=== PATIENT | male | born 1950 | race Caucasian/White ===

== ENCOUNTER 2016-06-01 19:29 | Inpatient (IN) | payer MEDICARE ==
[~2016-06-01] VITALS: Ht 172.7 cm; Wt 87.8 kg
[~2016-06-01 19:29] MED LIST: ASPI-515 PO; ASPI81TA14 PO; CALC-141 PO; CALC200T3 PO; CHLO25TA PO; CHOL5000 PO; DIGO250T PO; ENOX80SY5 SQ; FERR324T5 PO; FURO-92 PO; INFL100V IV; INSU100C5 SQ-INSULIN; INSU100V8 SQ; LISI-170 PO; MERC50TA17 PO; METO25TA35 PO; MULT-658 PO; OMEP20CA9 PO; SPIR25TA PO; SPIR25TA3 PO; TAMS-11 PO; TAMS0.4C2 PO; VERA120T74 PO; WARF4TAB PO; WARF4TAB7 PO; WARF5TAB PO; WARF7.5T6 PO-COUM
[2016-06-01] MEDS ORDERED: SODIUM CHLORIDE FLUSH 10ML SYR IVF ONE ×2 (20:00→20:30)
[2016-06-01 20:11] LABS: HEMOGLOBIN 12.9 g/dL (13.7-18.0)
[2016-06-01] MEDS ORDERED: SODIUM CHLORIDE 0.9% 1,000 ML IV ONE (20:16)
[2016-06-01 20:22] LABS: ASPARTATE AMINO TRANSFERASE 32 U/L (15-37); BLOOD UREA NITROGEN 21 mg/dL (7-18)
[2016-06-01 20:28] LABS: IS PT STATUS REG ER OR PRE ER? YES
[2016-06-01] MEDS ORDERED: ACETAMINOPHEN 500 MG TABLET ONE (20:29)
[2016-06-01] MEDS ORDERED: AZITHROMYCIN 500 MG in SODIUM CHLORIDE 0.9% 250 ML IV ONE (20:30)
[2016-06-01] MEDS ORDERED: SODIUM CHLORIDE 0.9% 1,000ML IVBOLUS ONE (20:30)
[2016-06-01] MEDS ORDERED: ACETAMINOPHEN 500 MG TABLET PO ONE (20:30)
[2016-06-01] MEDS ORDERED: CEFTRIAXONE PMX 1GM/50ML 50 ML IVPB ONE (20:30)
[2016-06-01] MEDS ORDERED: CEFTRIAXONE PMX 1GM/50ML 50 ML ONE (20:57)
[2016-06-01] MEDS ORDERED: LOSA25TA2 PO (21:18)
[2016-06-01] MEDS ORDERED: INSU100V8 SQ (21:18)
[2016-06-01] MEDS ORDERED: ATOR40TA PO (21:18)
[2016-06-01] MEDS ORDERED: ASPI-496 PO (21:18)
[2016-06-01] MEDS ORDERED: BRIM5DRO2 EACHEYE (21:18)
[2016-06-01] MEDS ORDERED: APIX5TAB PO (21:18)
[2016-06-01] MEDS ORDERED: CARV6.2512 PO (21:18)
[2016-06-01] MEDS ORDERED: CYAN10008 PO (21:18)
[2016-06-01 23:39] VITALS: BP 124/71
[2016-06-02] MEDS: CEFTRIAXONE PMX 1GM/50ML 50 ML IV SCH ×2 (00:30→21:40)
[2016-06-02] MEDS: AZITHROMYCIN 500 MG in SODIUM CHLORIDE 0.9% 250 ML IV SCH ×2 (00:30→20:11)
[2016-06-02] MEDS: ATORVASTATIN 40 MG TABLET PO SCH ×2 (00:30→20:16)
[2016-06-02] MEDS ORDERED: TEMAZEPAM 15 MG CAPSULE PO PRN (01:00)
[2016-06-02] MEDS ORDERED: DOCUSATE 100 MG CAPSULE PO PRN (01:00)
[2016-06-02 03:11] VITALS: BP 129/77
[2016-06-02 07:21] VITALS: BP 133/84
[2016-06-02] MEDS: CHOLECALCIFEROL 1,000 UNIT TABLET PO SCH (07:53)
[2016-06-02] MEDS: TAMSULOSIN 0.4 MG CAP.ER.24H PO SCH (07:53)
[2016-06-02] MEDS: APIXABAN 5 MG TABLET PO SCH ×2 (07:53→20:16)
[2016-06-02] MEDS: MULTIVITAMIN 1 TABLET PO SCH (07:53)
[2016-06-02] MEDS: ASPIRIN 81 MG TABLET EC PO SCH (07:53)
[2016-06-02] MEDS: LOSARTAN 25MG TABLET PO SCH (07:54)
[2016-06-02] MEDS: CARVEDILOL 6.25 MG TABLET PO SCH ×2 (07:54→20:16)
[2016-06-02] MEDS: FUROSEMIDE 40 MG TABLET PO SCH (07:56)
[2016-06-02] MEDS: TEMPLATE NON-FORMULARY MED. (Brimonidine Tartrate/Timolol (Combigan Eye Drops) 1 DROP) EACHEYE SCH ×2 (08:41→20:31)
[2016-06-02] MEDS: INSULIN DETEMIR 100 UNITS/ML, PEN SQ-INSULIN SCH (09:48)
[2016-06-02] MEDS: GUAIFENESIN 200 MG TABLET PO SCH ×3 (10:45→20:16)
[2016-06-02] MEDS: INSULIN ASPART 100 UNITS/ML, PEN SQ-INSULIN SCH ×3 (11:38→20:15)
[2016-06-02 13:29] VITALS: BP 107/67
[2016-06-02 19:55] VITALS: BP 116/66
[2016-06-03 02:33] VITALS: BP 122/76
[2016-06-03 06:07] LABS: HEMOGLOBIN 11.2 g/dL (13.7-18.0)
[2016-06-03 06:17] LABS: BLOOD UREA NITROGEN 16 mg/dL (7-18)
[2016-06-03 06:21] LABS: ASPARTATE AMINO TRANSFERASE 28 U/L (15-37)
[2016-06-03] MEDS: GUAIFENESIN 200 MG TABLET PO SCH ×4 (06:35→21:04)
[2016-06-03 07:37] VITALS: BP 131/85
[2016-06-03] MEDS: INSULIN ASPART 100 UNITS/ML, PEN SQ-INSULIN SCH ×4 (07:50→21:05)
[2016-06-03] MEDS ORDERED: ACETAMINOPHEN 325 MG TABLET PO PRN (08:30)
[2016-06-03] MEDS: TEMPLATE NON-FORMULARY MED. (Brimonidine Tartrate/Timolol (Combigan Eye Drops) 1 DROP) EACHEYE SCH ×2 (08:41→19:56)
[2016-06-03] MEDS: TAMSULOSIN 0.4 MG CAP.ER.24H PO SCH (08:42)
[2016-06-03] MEDS: LOSARTAN 25MG TABLET PO SCH (08:42)
[2016-06-03] MEDS: CARVEDILOL 6.25 MG TABLET PO SCH ×2 (08:42→21:04)
[2016-06-03] MEDS: APIXABAN 5 MG TABLET PO SCH ×2 (08:42→21:04)
[2016-06-03] MEDS: CHOLECALCIFEROL 1,000 UNIT TABLET PO SCH (08:43)
[2016-06-03] MEDS: ASPIRIN 81 MG TABLET EC PO SCH (08:43)
[2016-06-03] MEDS: MULTIVITAMIN 1 TABLET PO SCH (08:43)
[2016-06-03] MEDS: FUROSEMIDE 40 MG TABLET PO SCH (08:44)
[2016-06-03] MEDS: INSULIN DETEMIR 100 UNITS/ML, PEN SQ-INSULIN SCH (08:46)
[2016-06-03] MEDS: ALBUTEROL/IPRATROPIUM 2.5MG/0.5MG, 3 ML NPPB PRN (12:33)
[2016-06-03 14:22] VITALS: BP 113/72
[2016-06-03 18:34] VITALS: BP 136/72
[2016-06-03] MEDS: AZITHROMYCIN 500 MG in SODIUM CHLORIDE 0.9% 250 ML IV SCH (19:55)
[2016-06-03] MEDS: CEFTRIAXONE PMX 1GM/50ML 50 ML IV SCH (21:04)
[2016-06-03] MEDS: ATORVASTATIN 40 MG TABLET PO SCH (21:04)
[2016-06-04 01:49] VITALS: BP 108/71
[2016-06-04] MEDS: GUAIFENESIN 200 MG TABLET PO SCH ×4 (06:16→20:10)
[2016-06-04] MEDS: INSULIN ASPART 100 UNITS/ML, PEN SQ-INSULIN SCH ×4 (07:00→20:10)
[2016-06-04] MEDS: FUROSEMIDE 40 MG TABLET PO SCH (08:13)
[2016-06-04] MEDS: CHOLECALCIFEROL 1,000 UNIT TABLET PO SCH (08:13)
[2016-06-04] MEDS: TAMSULOSIN 0.4 MG CAP.ER.24H PO SCH (08:13)
[2016-06-04] MEDS: MULTIVITAMIN 1 TABLET PO SCH (08:13)
[2016-06-04] MEDS: TEMPLATE NON-FORMULARY MED. (Brimonidine Tartrate/Timolol (Combigan Eye Drops) 1 DROP) EACHEYE SCH ×2 (08:13→20:11)
[2016-06-04] MEDS: APIXABAN 5 MG TABLET PO SCH ×2 (08:13→20:10)
[2016-06-04] MEDS: ASPIRIN 81 MG TABLET EC PO SCH (08:13)
[2016-06-04] MEDS: CARVEDILOL 6.25 MG TABLET PO SCH ×2 (08:13→20:10)
[2016-06-04] MEDS: LOSARTAN 25MG TABLET PO SCH (08:14)
[2016-06-04] MEDS: INSULIN DETEMIR 100 UNITS/ML, PEN SQ-INSULIN SCH (08:15)
[2016-06-04 08:36] VITALS: BP 120/79
[2016-06-04] MEDS: ALBUTEROL/IPRATROPIUM 2.5MG/0.5MG, 3 ML NPPB PRN ×3 (10:05→21:18)
[2016-06-04 13:47] VITALS: BP 117/75
[2016-06-04 19:08] VITALS: BP 127/83
[2016-06-04] MEDS: AZITHROMYCIN 500 MG in SODIUM CHLORIDE 0.9% 250 ML IV SCH (20:10)
[2016-06-04] MEDS: ATORVASTATIN 40 MG TABLET PO SCH (20:10)
[2016-06-04] MEDS: CEFTRIAXONE PMX 1GM/50ML 50 ML IV SCH (21:17)
[2016-06-05 01:30] VITALS: BP 124/71
[2016-06-05] MEDS: GUAIFENESIN 200 MG TABLET PO SCH (05:57)
[2016-06-05] MEDS: INSULIN ASPART 100 UNITS/ML, PEN SQ-INSULIN SCH (07:00)
[2016-06-05 07:16] VITALS: BP 133/81
[2016-06-05] MEDS: TEMPLATE NON-FORMULARY MED. (Brimonidine Tartrate/Timolol (Combigan Eye Drops) 1 DROP) EACHEYE SCH (08:55)
[2016-06-05] MEDS: APIXABAN 5 MG TABLET PO SCH (08:56)
[2016-06-05] MEDS: CARVEDILOL 6.25 MG TABLET PO SCH (08:56)
[2016-06-05] MEDS: CHOLECALCIFEROL 1,000 UNIT TABLET PO SCH (08:56)
[2016-06-05] MEDS: TAMSULOSIN 0.4 MG CAP.ER.24H PO SCH (08:56)
[2016-06-05] MEDS: ASPIRIN 81 MG TABLET EC PO SCH (08:56)
[2016-06-05] MEDS: MULTIVITAMIN 1 TABLET PO SCH (08:56)
[2016-06-05] MEDS: FUROSEMIDE 40 MG TABLET PO SCH (08:56)
[2016-06-05] MEDS: LOSARTAN 25MG TABLET PO SCH (08:58)
[2016-06-05] MEDS: INSULIN DETEMIR 100 UNITS/ML, PEN SQ-INSULIN SCH (08:58)
[2016-06-05] MEDS: ALBUTEROL/IPRATROPIUM 2.5MG/0.5MG, 3 ML NPPB PRN (09:16)
[2016-06-05] MEDS ORDERED: TEMA15CA6 PO (10:50)
[2016-06-05] MEDS ORDERED: AZIT500T4 PO (10:50)
[2016-06-05] MEDS ORDERED: LACT1CAP24 PO (10:50)
[2016-06-05] MEDS ORDERED: CEFD300C2 PO (11:08)
== END 2016-06-05 12:16 | disposition home or self-care (01) | DRG 871 ==
LOC: ED 21:00 → EDIP 21:24 → 4EST 22:43
PROVIDERS: ADMIT Internal Medicine; ATTEND Internal Medicine
DX: A41.9 Sepsis, unspecified organism (principal); J15.9 Unspecified bacterial pneumonia; J96.01 Acute respiratory failure with hypoxia; E43 Unspecified severe protein-calorie malnutrition; K50.90 Crohn's disease, unspecified, without complications; D68.69 Other thrombophilia; I48.2 Chronic atrial fibrillation; E11.9 Type 2 diabetes mellitus without complications; I50.9 Heart failure, unspecified; I11.0 Hypertensive heart disease with heart failure; Z79.01 Long term (current) use of anticoagulants; Z86.711 Personal history of pulmonary embolism; Z86.73 Personal history of transient ischemic attack (TIA), and cerebral infarction without residual deficits; Z87.891 Personal history of nicotine dependence; Z79.4 Long term (current) use of insulin; Z82.3 Family history of stroke; Z83.3 Family history of diabetes mellitus; Z68.29 Body mass index [BMI] 29.0-29.9, adult; Z88.8 Allergy status to other drugs, medicaments and biological substances
CPT/HCPCS: 36415; 71010; 80053; 81003; 82962; 83036; 83605; 83735; 84100; 84145; 84484; 85025; 85610; 87040; 87070; 87205; 93005; 94640; 96365; 96366; 96368; J0456; J0696; J1815; J7620; J7030; J7050

== ENCOUNTER → 2016-06-15 | Outpatient (CLI) | payer MEDICARE ==
[~2016-06-15] MED LIST changes: +APIX5TAB PO; +ASPI-496 PO; +ATOR40TA PO; +AZIT500T4 PO; +BRIM5DRO2 EACHEYE; +CARV6.2512 PO; +CEFD300C2 PO; +CYAN10008 PO; +LACT1CAP24 PO; +LOSA25TA2 PO; +TEMA15CA6 PO
[2016-06-15 11:58] LABS: HEMOGLOBIN 12.1 g/dL (13.7-18.0)
[2016-06-15 12:09] LABS: ASPARTATE AMINO TRANSFERASE 29 U/L (15-37); BLOOD UREA NITROGEN 25 mg/dL (7-18)
== END | disposition home or self-care (01) ==
LOC: STAR 10:55
PROVIDERS: ATTEND Colon & Rectal Surgery
DX: Z01.811 Encounter for preprocedural respiratory examination (principal); E11.9 Type 2 diabetes mellitus without complications; Z90.49 Acquired absence of other specified parts of digestive tract
CPT/HCPCS: 36415; 71020; 80053; 85025

== ENCOUNTER 2016-06-25 06:25 | Inpatient (IN) | payer MEDICARE ==
[~2016-06-25] VITALS: Ht 172.7 cm; Wt 81.0 kg
[2016-06-25] VITALS (10 sets, daily range): BP systolic 102–132; BP diastolic 62–87
[~2016-06-25 06:25] MED LIST changes: -AZIT500T4 PO; +AZIT500T77 PO; -CEFD300C2 PO; +CEFD300C37 PO
[2016-06-25] MEDS ORDERED: WARF5TAB PO (07:42)
[2016-06-25] MEDS ORDERED: LACTATED RINGERS 1,000 ML IV SCH (07:42)
[2016-06-25] MEDS ORDERED: FENTANYL PF 250 MCG/5ML ONE (07:58)
[2016-06-25] MEDS ORDERED: MIDAZOLAM 1 MG/ML, 2ML ONE (07:58)
[2016-06-25] MEDS ORDERED: BUPIVACAINE/PF-EPI 0.25% 1:200K ONE (08:23)
[2016-06-25] MEDS ORDERED: PNEUMOCOCCAL 23 VACCINE IM-VACC ONE (08:30)
[2016-06-25] MEDS ORDERED: PHENYLEPHRINE 10 MG/ML ONE ×2 (08:38)
[2016-06-25] MEDS ORDERED: ROCURONIUM 10 MG/ML ONE ×3 (08:38)
[2016-06-25] MEDS ORDERED: PROPOFOL 10 MG/ML, 20ML ONE (08:38)
[2016-06-25] MEDS ORDERED: SUCCINYLCHOLINE 20 MG/ML, 10ML ONE (08:38)
[2016-06-25] MEDS ORDERED: CEFOTETAN 2 GM ONE (08:38)
[2016-06-25] MEDS ORDERED: VASOPRESSIN 20 UNIT/ML, 1ML ONE (08:38)
[2016-06-25] MEDS ORDERED: HYDROmorphone 1 MG/ML, 1ML IV PRN (09:30)
[2016-06-25] MEDS ORDERED: HYDROcodone/APAP 7.5-325MG/15ML UDC PO PRN (09:30)
[2016-06-25] MEDS ORDERED: ACETAMINOPHEN 325 MG TABLET PO PRN (09:30)
[2016-06-25] MEDS ORDERED: MIDAZOLAM 1 MG/ML, 2ML IV PRN (09:30)
[2016-06-25] MEDS ORDERED: FENTANYL PF 100 MCG/2ML IV PRN (09:30)
[2016-06-25] MEDS ORDERED: MEPERIDINE/PF 25MG/0.5ML IVPush PRN (09:30)
[2016-06-25] MEDS ORDERED: OXYcodone 5 MG/5 ML ORAL.SOL UDC PO PRN (09:30)
[2016-06-25] MEDS ORDERED: ONDANSETRON 2MG/ML, 2ML IVPush PRN (09:30)
[2016-06-25] MEDS ORDERED: INSULIN SINGLE DOSE, ER SQ-INSULIN ONE (10:10)
[2016-06-25] MEDS ORDERED: ALBUMIN HUMAN 25% 0 ML ONE (11:58)
[2016-06-25] MEDS ORDERED: ALBUMIN HUMAN 5% 500 ML ONE (11:59)
[2016-06-25] MEDS ORDERED: THROMBIN 20,000 UNIT VIAL TP ONE (12:12)
[2016-06-25] MEDS ORDERED: HYDROmorphone 1 MG/ML, 1ML ONE (13:05)
[2016-06-25] MEDS ORDERED: PROPOFOL 100 ML IV ONE (13:45)
[2016-06-25] MEDS ORDERED: FENTANYL PF 2,500 MCG in SODIUM CHLORIDE 0.9% 200 ML IV PRN ×2 (14:28→14:30)
[2016-06-25] MEDS ORDERED: ONDANSETRON 2MG/ML, 2ML IV PRN (14:30)
[2016-06-25] MEDS ORDERED: KETOROLAC 30 MG/1 ML IV PRN (14:30)
[2016-06-25] MEDS ORDERED: LIDOCAINE-MPF 1%, 2ML ENDO PRN (14:30)
[2016-06-25] MEDS ORDERED: DIPHENHYDRAMINE 50 MG/ML, 1ML IV PRN (14:30)
[2016-06-25] MEDS ORDERED: DIPHENHYDRAMINE 25 MG CAPSULE PO PRN (14:30)
[2016-06-25] MEDS ORDERED: LACTULOSE 20 GM/30 ML UDC NG PRN (14:30)
[2016-06-25] MEDS ORDERED: FENTANYL PF 100 MCG/2ML IV ONE (14:30)
[2016-06-25] MEDS ORDERED: PHARMACY MAY ADJ FOR RENAL FX MC SCH (14:30)
[2016-06-25] MEDS ORDERED: FENTANYL PF 100 MCG/2ML IVPush PRN (14:30)
[2016-06-25] MEDS ORDERED: SENNOSIDES 8.8 MG/5 ML ORAL SOL NG PRN (14:30)
[2016-06-25] MEDS ORDERED: BISACODYL 10 MG SUPP PR PRN (14:30)
[2016-06-25] MEDS ORDERED: SENNA/DOCUSATE TABLET NG PRN (14:30)
[2016-06-25] MEDS ORDERED: SODIUM CHLORIDE 0.9% 1,000ML IVBOLUS ONE (14:30)
[2016-06-25 15:01] LABS: ABG COLLECTION SITE ARTERIAL LINE
[2016-06-25] MEDS: INSULIN ASPART 100 UNITS/ML, 3ML PEN MEDIUM DOSE SS SQ-INSULIN SCH ×2 (16:00→21:19)
[2016-06-25] MEDS: PROPOFOL 100 ML IV PRN ×2 (16:56→22:01)
[2016-06-25] MEDS: FAMOTIDINE 20 MG/2 ML IV SCH (17:01)
[2016-06-25] MEDS: LACTATED RINGERS 1,000 ML IV SCH (17:25)
[2016-06-25] MEDS: CARVEDILOL 6.25 MG TABLET PO SCH (18:00)
[2016-06-25] MEDS: ALBUTEROL/IPRATROPIUM 2.5MG/0.5MG, 3 ML INLINE SCH ×2 (18:30→22:30)
[2016-06-25] MEDS ORDERED: LACTATED RINGERS 1,000 ML IVBOLUS ONE (20:00)
[2016-06-25] MEDS ORDERED: ALBUMIN HUMAN 25% 100 ML IV ONE (20:00)
[2016-06-25] MEDS: CEFOTETAN PMX 2GM/50ML 50 ML IVPB SCH (20:24)
[2016-06-25] MEDS: ATORVASTATIN 40 MG TABLET PO SCH (21:00)
[2016-06-25] MEDS: INSULIN DETEMIR 100 UNITS/ML, PEN SQ-INSULIN SCH (21:00)
[2016-06-26] MEDS: LACTATED RINGERS 1,000 ML IV SCH ×4 (02:07→18:55)
[2016-06-26] MEDS: ALBUTEROL/IPRATROPIUM 2.5MG/0.5MG, 3 ML INLINE SCH ×6 (02:28→22:30)
[2016-06-26] MEDS: FAMOTIDINE 20 MG/2 ML IV SCH ×2 (02:56→18:53)
[2016-06-26 03:26] LABS: ABG COLLECTION SITE ARTERIAL LINE
[2016-06-26 03:28] LABS: ASPARTATE AMINO TRANSFERASE 23 U/L (15-37); BLOOD UREA NITROGEN 24 mg/dL (7-18)
[2016-06-26 04:22] VITALS: BP 108/72
[2016-06-26] MEDS: INSULIN ASPART 100 UNITS/ML, 3ML PEN MEDIUM DOSE SS SQ-INSULIN SCH ×4 (05:21→21:00)
[2016-06-26] MEDS: CARVEDILOL 6.25 MG TABLET PO SCH ×2 (05:21→18:54)
[2016-06-26] MEDS: PROPOFOL 100 ML IV PRN ×4 (05:21→22:39)
[2016-06-26] MEDS: CEFOTETAN PMX 2GM/50ML 50 ML IVPB SCH (08:26)
[2016-06-26] MEDS: TAMSULOSIN 0.4 MG CAP.ER.24H PO SCH (08:26)
[2016-06-26 08:43] LABS: BLOOD UREA NITROGEN 28 mg/dL (7-18)
[2016-06-26] MEDS ORDERED: LACTATED RINGERS 1,000 ML IVBOLUS ONE (09:00)
[2016-06-26] MEDS ORDERED: MAGNESIUM SULFATE PMX 2GM/50ML 50 ML IV ONE (09:00)
[2016-06-26] MEDS ORDERED: ENOXAPARIN 40 MG/0.4 ML SQ SCH (09:00)
[2016-06-26] MEDS ORDERED: [UNRECOGNIZED DRUG - OTHER] MC SCH ×2 (09:00→10:00)
[2016-06-26 09:12] LABS: DIFF TOTAL CELLS COUNTED 100 CELL DIFF
[2016-06-26 09:18] LABS: POLYCHROMASIA 1+; VERIFY COUNTS? YES
[2016-06-26 09:19] LABS: LARGE PLATELETS 1+
[2016-06-26] MEDS ORDERED: ALBUMIN HUMAN 25% 100 ML IV ONE (10:00)
[2016-06-26] MEDS ORDERED: ALBUMIN HUMAN 5% 500 ML IV ONE (10:30)
[2016-06-26] MEDS ORDERED: ALBUMIN HUMAN 5% 500 ML IV SCH (11:00)
[2016-06-26] MEDS ORDERED: KETAMINE 10 MG/ML, 20ML ONE (12:57)
[2016-06-26] MEDS ORDERED: MIDAZOLAM 1 MG/ML, 2ML ONE (12:57)
[2016-06-26] MEDS ORDERED: FENTANYL PF 250 MCG/5ML ONE (12:57)
[2016-06-26] MEDS ORDERED: ALBUMIN HUMAN 25% 0 ML ONE (13:41)
[2016-06-26] MEDS ORDERED: ALBUMIN HUMAN 5% 500 ML ONE ×2 (13:45→14:13)
[2016-06-26] MEDS ORDERED: ROCURONIUM 10 MG/ML ONE (13:48)
[2016-06-26] MEDS ORDERED: SODIUM BICARBONATE 1 MEQ/ML, 50ML VIAL ONE (13:48)
[2016-06-26] MEDS ORDERED: PROPOFOL 10 MG/ML, 50ML ONE (13:48)
[2016-06-26] MEDS ORDERED: PHENYLEPHRINE 10 MG/ML ONE (13:48)
[2016-06-26] MEDS ORDERED: METOPROLOL 1 MG/ML, 5ML ONE (13:48)
[2016-06-26] MEDS ORDERED: CEFOTETAN 2 GM ONE (13:48)
[2016-06-26] MEDS ORDERED: PROPOFOL 10 MG/ML, 20ML ONE (13:48)
[2016-06-26 14:16] LABS: DIFF TOTAL CELLS COUNTED 100 CELL DIFF
[2016-06-26 14:18] LABS: POLYCHROMASIA 1+; VERIFY COUNTS? YES
[2016-06-26] MEDS ORDERED: INSULIN SINGLE DOSE, ER SQ-INSULIN ONE (15:34)
[2016-06-26] MEDS ORDERED: THROMBIN 5,000 UNIT VIAL TP ONE (16:03)
[2016-06-26] MEDS ORDERED: TPN PER PHARMACY MC SCH (18:30)
[2016-06-26 18:50] VITALS: BP 139/74
[2016-06-26 19:05] VITALS: BP 136/73
[2016-06-26 19:20] VITALS: BP 143/74
[2016-06-26 19:22] LABS: ABG COLLECTION SITE ARTERIAL LINE
[2016-06-26] MEDS: PIPERACILLIN/TAZO/PMX 3.375GM 50 ML IV SCH (19:26)
[2016-06-26 20:11] VITALS: BP 131/78
[2016-06-26 20:27] VITALS: BP 115/60
[2016-06-26] MEDS: ATORVASTATIN 40 MG TABLET PO SCH (21:10)
[2016-06-26] MEDS: INSULIN ASPART 100 UNITS/ML, PEN SQ-INSULIN SCH (21:11)
[2016-06-26] MEDS: INSULIN DETEMIR 100 UNITS/ML, PEN SQ-INSULIN SCH (21:12)
[2016-06-27] MEDS: PIPERACILLIN/TAZO/PMX 3.375GM 50 ML IV SCH ×4 (00:17→18:12)
[2016-06-27] MEDS: LACTATED RINGERS 1,000 ML IV SCH ×3 (01:43→16:21)
[2016-06-27] MEDS: ALBUTEROL/IPRATROPIUM 2.5MG/0.5MG, 3 ML INLINE SCH ×6 (02:30→22:30)
[2016-06-27] MEDS: PROPOFOL 100 ML IV PRN (03:43)
[2016-06-27] MEDS: INSULIN ASPART 100 UNITS/ML, PEN SQ-INSULIN SCH ×4 (03:52→21:04)
[2016-06-27] MEDS: FAMOTIDINE 20 MG/2 ML IV SCH (03:53)
[2016-06-27 04:12] VITALS: BP 113/65
[2016-06-27] MEDS: CARVEDILOL 6.25 MG TABLET PO SCH ×2 (05:40→17:01)
[2016-06-27 06:46] LABS: ASPARTATE AMINO TRANSFERASE 17 U/L (15-37); BLOOD UREA NITROGEN 22 mg/dL (7-18)
[2016-06-27 06:51] LABS: ABG COLLECTION SITE LEFT RADIAL; COLLATERAL CIRCULATION TESTING NORMAL
[2016-06-27] MEDS ORDERED: ALBUMIN HUMAN 25% 100 ML IV ONE (08:30)
[2016-06-27] MEDS: TAMSULOSIN 0.4 MG CAP.ER.24H PO SCH (09:00)
[2016-06-27] MEDS ORDERED: FUROSEMIDE 20 MG/2 ML IV ONE (10:00)
[2016-06-27 10:23] LABS: DIFF TOTAL CELLS COUNTED 100 CELL DIFF
[2016-06-27 10:26] LABS: ANISOCYTOSIS 1+; POLYCHROMASIA 1+; VERIFY COUNTS? YES
[2016-06-27 13:36] LABS: DIFF TOTAL CELLS COUNTED 100 CELL DIFF
[2016-06-27 13:38] LABS: ANISOCYTOSIS 1+; POLYCHROMASIA 1+; VERIFY COUNTS? YES
[2016-06-27] MEDS: HYDROmorphone 1 MG/ML, 1ML IV PRN ×2 (14:16→20:49)
[2016-06-27] MEDS ORDERED: [UNRECOGNIZED DRUG - OTHER] IV SCH (17:00)
[2016-06-27] MEDS ORDERED: DEXTROSE 10% 500 ML IV PRN (17:00)
[2016-06-27] MEDS ORDERED: DEXTROSE 50%, 50ML SYRINGE IVPush PRN (17:00)
[2016-06-27] MEDS ORDERED: DEXTROSE 70% IV SCH (17:00)
[2016-06-27] MEDS ORDERED: STERILE WATER IV SCH (17:00)
[2016-06-27] MEDS ORDERED: AMINO ACID 10% IV SCH (17:00)
[2016-06-27] MEDS: FILTER, DISP 1.2 MICRON FOR TPN/PVN IV PRN (17:03)
[2016-06-27 17:10] LABS: DIFF TOTAL CELLS COUNTED 100 CELL DIFF
[2016-06-27 17:14] LABS: VERIFY COUNTS? YES
[2016-06-27 17:15] LABS: ANISOCYTOSIS 1+; POLYCHROMASIA 1+
[2016-06-27] MEDS: ATORVASTATIN 40 MG TABLET PO SCH (21:03)
[2016-06-27] MEDS: INSULIN DETEMIR 100 UNITS/ML, PEN SQ-INSULIN SCH (21:03)
[2016-06-27 23:14] LABS: DIFF TOTAL CELLS COUNTED 100 CELL DIFF
[2016-06-27 23:17] LABS: ANISOCYTOSIS 1+; POLYCHROMASIA 1+; VERIFY COUNTS? YES
[2016-06-28] MEDS: PIPERACILLIN/TAZO/PMX 3.375GM 50 ML IV SCH ×4 (00:29→17:22)
[2016-06-28] MEDS: LACTATED RINGERS 1,000 ML IV SCH (02:01)
[2016-06-28] MEDS: HYDROmorphone 1 MG/ML, 1ML IV PRN ×4 (02:06→23:40)
[2016-06-28] MEDS: ALBUTEROL/IPRATROPIUM 2.5MG/0.5MG, 3 ML INLINE SCH ×3 (02:30→10:30)
[2016-06-28 04:15] VITALS: BP 143/89
[2016-06-28 04:35] LABS: ABG COLLECTION SITE LEFT RADIAL; COLLATERAL CIRCULATION TESTING NORMAL
[2016-06-28] MEDS: INSULIN ASPART 100 UNITS/ML, PEN SQ-INSULIN SCH ×4 (05:49→20:49)
[2016-06-28] MEDS: CARVEDILOL 6.25 MG TABLET PO SCH ×2 (05:51→16:35)
[2016-06-28 06:52] LABS: BLOOD UREA NITROGEN 16 mg/dL (7-18)
[2016-06-28 07:13] LABS: DIFF TOTAL CELLS COUNTED 100 CELL DIFF
[2016-06-28 07:16] LABS: ANISOCYTOSIS 1+; POLYCHROMASIA 1+; VERIFY COUNTS? YES
[2016-06-28] MEDS: TAMSULOSIN 0.4 MG CAP.ER.24H PO SCH (08:02)
[2016-06-28] MEDS ORDERED: LACTATED RINGERS 1,000 ML IV SCH (08:36)
[2016-06-28] MEDS ORDERED: DEXTROSE 70% IV SCH (17:00)
[2016-06-28] MEDS ORDERED: [UNRECOGNIZED DRUG - OTHER] IV SCH (17:00)
[2016-06-28] MEDS ORDERED: AMINO ACID 10% IV SCH (17:00)
[2016-06-28] MEDS ORDERED: FAT EMULSIONS IV SCH (17:00)
[2016-06-28] MEDS: ATORVASTATIN 40 MG TABLET PO SCH (20:48)
[2016-06-28] MEDS: INSULIN DETEMIR 100 UNITS/ML, PEN SQ-INSULIN SCH (20:48)
[2016-06-29] MEDS: PIPERACILLIN/TAZO/PMX 3.375GM 50 ML IV SCH ×4 (00:33→17:31)
[2016-06-29] MEDS: INSULIN ASPART 100 UNITS/ML, PEN SQ-INSULIN SCH ×4 (03:12→22:55)
[2016-06-29 03:33] LABS: BLOOD UREA NITROGEN 20 mg/dL (7-18)
[2016-06-29 04:17] LABS: ABG COLLECTION SITE RIGHT RADIAL
[2016-06-29 04:18] LABS: COLLATERAL CIRCULATION TESTING NORMAL
[2016-06-29 04:23] VITALS: BP 154/94
[2016-06-29] MEDS: CARVEDILOL 6.25 MG TABLET PO SCH ×2 (06:11→17:28)
[2016-06-29] MEDS: TAMSULOSIN 0.4 MG CAP.ER.24H PO SCH (09:24)
[2016-06-29] MEDS: ALBUTEROL/IPRATROPIUM 2.5MG/0.5MG, 3 ML INLINE SCH (10:02)
[2016-06-29] MEDS ORDERED: DEXTROSE 70% IV SCH (17:00)
[2016-06-29] MEDS ORDERED: [UNRECOGNIZED DRUG - OTHER] IV SCH (17:00)
[2016-06-29] MEDS ORDERED: AMINO ACID 10% IV SCH (17:00)
[2016-06-29] MEDS ORDERED: FAT EMULSIONS IV SCH (17:00)
[2016-06-29] MEDS: ATORVASTATIN 40 MG TABLET PO SCH (20:51)
[2016-06-29] MEDS: INSULIN DETEMIR 100 UNITS/ML, PEN SQ-INSULIN SCH (20:52)
[2016-06-30] MEDS: PIPERACILLIN/TAZO/PMX 3.375GM 50 ML IV SCH ×4 (00:55→18:40)
[2016-06-30 04:00] VITALS: BP 166/100
[2016-06-30 04:48] LABS: BLOOD UREA NITROGEN 22 mg/dL (7-18)
[2016-06-30] MEDS: CARVEDILOL 6.25 MG TABLET PO SCH ×2 (05:58→18:14)
[2016-06-30] MEDS: INSULIN ASPART 100 UNITS/ML, PEN SQ-INSULIN SCH ×4 (05:59→23:37)
[2016-06-30] MEDS ORDERED: LABETALOL 5MG/ML, 20ML IV PRN (08:30)
[2016-06-30] MEDS: TAMSULOSIN 0.4 MG CAP.ER.24H PO SCH (09:17)
[2016-06-30 13:08] VITALS: BP 166/93
[2016-06-30] MEDS ORDERED: AMINO ACID 10% IV SCH ×2 (17:00→18:32)
[2016-06-30] MEDS ORDERED: DEXTROSE 70% IV SCH ×2 (17:00→18:32)
[2016-06-30] MEDS ORDERED: FAT EMULSIONS IV SCH ×2 (17:00→18:32)
[2016-06-30] MEDS ORDERED: [UNRECOGNIZED DRUG - OTHER] IV SCH ×2 (17:00→18:32)
[2016-06-30 18:49] VITALS: BP 156/100
[2016-06-30] MEDS: INSULIN DETEMIR 100 UNITS/ML, PEN SQ-INSULIN SCH (20:57)
[2016-06-30] MEDS: ATORVASTATIN 40 MG TABLET PO SCH (20:57)
[2016-06-30 23:27] VITALS: BP 150/93
[2016-07-01] VITALS (11 sets, daily range): BP systolic 121–168; BP diastolic 73–112
[2016-07-01] MEDS: PIPERACILLIN/TAZO/PMX 3.375GM 50 ML IV SCH ×4 (00:35→18:10)
[2016-07-01 04:02] LABS: BLOOD UREA NITROGEN 21 mg/dL (7-18)
[2016-07-01] MEDS: INSULIN ASPART 100 UNITS/ML, PEN SQ-INSULIN SCH ×3 (06:00→18:18)
[2016-07-01] MEDS: CARVEDILOL 6.25 MG TABLET PO SCH ×2 (06:19→18:10)
[2016-07-01] MEDS: TAMSULOSIN 0.4 MG CAP.ER.24H PO SCH (08:04)
[2016-07-01] MEDS ORDERED: hydrALAzine 20 MG/ML, 1ML IV PRN (12:30)
[2016-07-01] MEDS: LOSARTAN 25MG TABLET PO SCH (13:30)
[2016-07-01] MEDS ORDERED: AMINO ACID 10% IV SCH (17:00)
[2016-07-01] MEDS ORDERED: [UNRECOGNIZED DRUG - OTHER] IV SCH (17:00)
[2016-07-01] MEDS ORDERED: FAT EMULSIONS IV SCH (17:00)
[2016-07-01] MEDS ORDERED: DEXTROSE 70% IV SCH (17:00)
[2016-07-01] MEDS: ATORVASTATIN 40 MG TABLET PO SCH (22:38)
[2016-07-01] MEDS: INSULIN DETEMIR 100 UNITS/ML, PEN SQ-INSULIN SCH (23:23)
[2016-07-02] MEDS: PIPERACILLIN/TAZO/PMX 3.375GM 50 ML IV SCH ×4 (00:49→18:13)
[2016-07-02] MEDS: INSULIN ASPART 100 UNITS/ML, PEN SQ-INSULIN SCH ×4 (00:55→17:47)
[2016-07-02] MEDS: SODIUM CHLORIDE 0.9% 1,000 ML IV SCH ×2 (01:39→20:25)
[2016-07-02 01:40] VITALS: BP 142/90
[2016-07-02 05:49] LABS: BLOOD UREA NITROGEN 20 mg/dL (7-18)
[2016-07-02 06:07] VITALS: BP 152/91
[2016-07-02] MEDS: CARVEDILOL 6.25 MG TABLET PO SCH ×2 (06:08→17:47)
[2016-07-02 06:30] LABS: DIFF TOTAL CELLS COUNTED 100 CELL DIFF
[2016-07-02 06:33] LABS: HYPOCHROMIA 1+; VERIFY COUNTS? YES
[2016-07-02 07:32] VITALS: BP 133/84
[2016-07-02] MEDS: LACTATED RINGERS 500 ML IV SCH ×2 (08:30→17:39)
[2016-07-02] MEDS: LOSARTAN 25MG TABLET PO SCH (08:41)
[2016-07-02] MEDS: TAMSULOSIN 0.4 MG CAP.ER.24H PO SCH (08:41)
[2016-07-02] MEDS ORDERED: FAMOTIDINE 20 MG/2 ML IVPush SCH (09:00)
[2016-07-02] MEDS ORDERED: OMNIPAQUE 350 MG/ML, 100ML BOTTLE ONE (09:27)
[2016-07-02 13:10] VITALS: BP 125/69
[2016-07-02 16:21] LABS: PATH.CAST-FLAG NOT PRESENT; SPERM-FLAG NOT PRESENT; SRC-FLAG NOT PRESENT; XTAL-FLAG NOT PRESENT; YLC-FLAG NOT PRESENT
[2016-07-02] MEDS: FILTER, DISP 1.2 MICRON FOR TPN/PVN IV PRN (16:56)
[2016-07-02] MEDS ORDERED: AMINO ACID 10% IV SCH (17:00)
[2016-07-02] MEDS ORDERED: FAT EMULSIONS IV SCH (17:00)
[2016-07-02] MEDS ORDERED: DEXTROSE 70% IV SCH (17:00)
[2016-07-02] MEDS ORDERED: [UNRECOGNIZED DRUG - OTHER] IV SCH (17:00)
[2016-07-02] MEDS: OXYcodone/APAP 5/325MG TABLET PO PRN (17:08)
[2016-07-02 20:00] VITALS: BP 129/77
[2016-07-02] MEDS: ATORVASTATIN 40 MG TABLET PO SCH (21:51)
[2016-07-02] MEDS: INSULIN DETEMIR 100 UNITS/ML, PEN SQ-INSULIN SCH (21:59)
[2016-07-03] MEDS: PIPERACILLIN/TAZO/PMX 3.375GM 50 ML IV SCH ×4 (00:39→17:58)
[2016-07-03] MEDS: INSULIN ASPART 100 UNITS/ML, PEN SQ-INSULIN SCH ×4 (00:56→18:07)
[2016-07-03] MEDS: OXYcodone/APAP 5/325MG TABLET PO PRN ×4 (00:58→20:38)
[2016-07-03 02:00] VITALS: BP 138/81
[2016-07-03] MEDS: CARVEDILOL 6.25 MG TABLET PO SCH ×2 (06:09→17:59)
[2016-07-03 06:22] LABS: BLOOD UREA NITROGEN 24 mg/dL (7-18)
[2016-07-03] MEDS ORDERED: LACTATED RINGERS 1,000 ML IVBOLUS ONE (08:00)
[2016-07-03 08:15] VITALS: BP 111/74
[2016-07-03] MEDS: LOSARTAN 25MG TABLET PO SCH (08:28)
[2016-07-03] MEDS: TAMSULOSIN 0.4 MG CAP.ER.24H PO SCH (08:28)
[2016-07-03] MEDS ORDERED: FAMOTIDINE 20 MG/2 ML IVPush SCH (09:00)
[2016-07-03] MEDS ORDERED: TPN MC PRN (09:00)
[2016-07-03] MEDS ORDERED: PEPCID MC PRN (09:00)
[2016-07-03 14:12] VITALS: BP 127/85
[2016-07-03] MEDS: FILTER, DISP 1.2 MICRON FOR TPN/PVN IV PRN (16:30)
[2016-07-03] MEDS ORDERED: [UNRECOGNIZED DRUG - OTHER] IV SCH (17:00)
[2016-07-03] MEDS ORDERED: FAT EMULSIONS IV SCH (17:00)
[2016-07-03] MEDS ORDERED: AMINO ACID 10% IV SCH (17:00)
[2016-07-03] MEDS ORDERED: DEXTROSE 70% IV SCH (17:00)
[2016-07-03 19:44] VITALS: BP 118/76
[2016-07-03] MEDS: ATORVASTATIN 40 MG TABLET PO SCH (20:38)
[2016-07-03] MEDS: INSULIN DETEMIR 100 UNITS/ML, PEN SQ-INSULIN SCH (20:41)
[2016-07-04] MEDS: PIPERACILLIN/TAZO/PMX 3.375GM 50 ML IV SCH ×4 (00:27→18:01)
[2016-07-04] MEDS: OXYcodone/APAP 5/325MG TABLET PO PRN ×5 (00:27→20:06)
[2016-07-04] MEDS: INSULIN ASPART 100 UNITS/ML, PEN SQ-INSULIN SCH ×4 (00:27→17:06)
[2016-07-04 00:55] VITALS: BP 122/74
[2016-07-04] MEDS: CARVEDILOL 6.25 MG TABLET PO SCH ×2 (05:35→18:01)
[2016-07-04 06:08] LABS: BLOOD UREA NITROGEN 22 mg/dL (7-18)
[2016-07-04 07:05] VITALS: BP 114/70
[2016-07-04] MEDS: TAMSULOSIN 0.4 MG CAP.ER.24H PO SCH (08:47)
[2016-07-04] MEDS: LOSARTAN 25MG TABLET PO SCH (08:48)
[2016-07-04] MEDS ORDERED: LACTATED RINGERS 500 ML IVBOLUS ONE (09:30)
[2016-07-04] MEDS: SODIUM CHLORIDE 0.9% 1,000 ML IV SCH (13:38)
[2016-07-04 14:00] VITALS: BP 131/77
[2016-07-04] MEDS: FILTER, DISP 1.2 MICRON FOR TPN/PVN IV PRN (16:38)
[2016-07-04] MEDS ORDERED: [UNRECOGNIZED DRUG - OTHER] IV SCH (17:00)
[2016-07-04] MEDS ORDERED: FAT EMULSIONS IV SCH (17:00)
[2016-07-04] MEDS ORDERED: AMINO ACID 10% IV SCH (17:00)
[2016-07-04] MEDS ORDERED: DEXTROSE 70% IV SCH (17:00)
[2016-07-04 19:55] VITALS: BP 144/87
[2016-07-04] MEDS: ATORVASTATIN 40 MG TABLET PO SCH (20:05)
[2016-07-04] MEDS: INSULIN DETEMIR 100 UNITS/ML, PEN SQ-INSULIN SCH (22:19)
[2016-07-05] MEDS: PIPERACILLIN/TAZO/PMX 3.375GM 50 ML IV SCH ×4 (00:39→18:08)
[2016-07-05] MEDS: INSULIN ASPART 100 UNITS/ML, PEN SQ-INSULIN SCH ×4 (00:46→18:08)
[2016-07-05 00:54] VITALS: BP 115/68
[2016-07-05] MEDS: CARVEDILOL 6.25 MG TABLET PO SCH ×2 (05:46→18:09)
[2016-07-05] MEDS: OXYcodone/APAP 5/325MG TABLET PO PRN ×4 (05:46→21:57)
[2016-07-05 06:53] VITALS: BP 129/74
[2016-07-05 06:54] LABS: BLOOD UREA NITROGEN 21 mg/dL (7-18)
[2016-07-05 07:18] LABS: DIFF TOTAL CELLS COUNTED 100 CELL DIFF
[2016-07-05 07:28] LABS: VERIFY COUNTS? YES
[2016-07-05 07:34] LABS: ANISOCYTOSIS 1+; HYPOCHROMIA 1+
[2016-07-05] MEDS: TAMSULOSIN 0.4 MG CAP.ER.24H PO SCH (09:56)
[2016-07-05] MEDS: LOSARTAN 25MG TABLET PO SCH (09:56)
[2016-07-05 14:49] VITALS: BP 139/89
[2016-07-05] MEDS ORDERED: DEXTROSE 70% IV SCH (17:00)
[2016-07-05] MEDS ORDERED: FAT EMULSIONS IV SCH (17:00)
[2016-07-05] MEDS ORDERED: AMINO ACID 10% IV SCH (17:00)
[2016-07-05] MEDS ORDERED: [UNRECOGNIZED DRUG - OTHER] IV SCH (17:00)
[2016-07-05 20:07] VITALS: BP 115/73
[2016-07-05] MEDS: ATORVASTATIN 40 MG TABLET PO SCH (21:56)
[2016-07-05] MEDS: INSULIN DETEMIR 100 UNITS/ML, PEN SQ-INSULIN SCH (21:58)
[2016-07-05] MEDS: SODIUM CHLORIDE 0.9% 1,000 ML IV SCH (21:58)
[2016-07-06] MEDS: INSULIN ASPART 100 UNITS/ML, PEN SQ-INSULIN SCH ×4 (00:21→18:04)
[2016-07-06] MEDS: PIPERACILLIN/TAZO/PMX 3.375GM 50 ML IV SCH ×4 (00:22→17:53)
[2016-07-06] MEDS: OXYcodone/APAP 5/325MG TABLET PO PRN ×3 (03:22→13:54)
[2016-07-06 03:34] VITALS: BP 131/75
[2016-07-06] MEDS: CARVEDILOL 6.25 MG TABLET PO SCH ×2 (06:25→17:53)
[2016-07-06 06:29] LABS: ASPARTATE AMINO TRANSFERASE 34 U/L (15-37); BLOOD UREA NITROGEN 21 mg/dL (7-18)
[2016-07-06 07:41] VITALS: BP 111/69
[2016-07-06] MEDS: TAMSULOSIN 0.4 MG CAP.ER.24H PO SCH (08:54)
[2016-07-06] MEDS: LOSARTAN 25MG TABLET PO SCH (08:54)
[2016-07-06] MEDS ORDERED: OMNIPAQUE 350 MG/ML, 100ML BOTTLE ONE (13:07)
[2016-07-06 13:14] VITALS: BP 134/84
[2016-07-06] MEDS ORDERED: AMINO ACID 10% IV SCH (17:00)
[2016-07-06] MEDS ORDERED: [UNRECOGNIZED DRUG - OTHER] IV SCH (17:00)
[2016-07-06] MEDS ORDERED: DEXTROSE 70% IV SCH (17:00)
[2016-07-06] MEDS ORDERED: FAT EMULSIONS IV SCH (17:00)
[2016-07-06] MEDS: FILTER, DISP 1.2 MICRON FOR TPN/PVN IV PRN (17:54)
[2016-07-06 20:00] VITALS: BP 134/72
[2016-07-06] MEDS: ATORVASTATIN 40 MG TABLET PO SCH (21:32)
[2016-07-06] MEDS: INSULIN DETEMIR 100 UNITS/ML, PEN SQ-INSULIN SCH (21:33)
[2016-07-06] MEDS: SODIUM CHLORIDE 0.9% 1,000 ML IV SCH (21:36)
[2016-07-07] MEDS: PIPERACILLIN/TAZO/PMX 3.375GM 50 ML IV SCH ×2 (00:11→06:09)
[2016-07-07] MEDS: INSULIN ASPART 100 UNITS/ML, PEN SQ-INSULIN SCH ×5 (00:12→23:27)
[2016-07-07 01:21] VITALS: BP 122/77
[2016-07-07] MEDS: CARVEDILOL 6.25 MG TABLET PO SCH ×2 (06:09→17:39)
[2016-07-07 07:03] LABS: BLOOD UREA NITROGEN 18 mg/dL (7-18)
[2016-07-07 07:12] VITALS: BP 148/89
[2016-07-07 07:17] LABS: DIFF TOTAL CELLS COUNTED 100 CELL DIFF
[2016-07-07 07:19] LABS: VERIFY COUNTS? YES
[2016-07-07 07:20] LABS: ANISOCYTOSIS 1+; POLYCHROMASIA 1+
[2016-07-07 07:21] LABS: HYPOCHROMIA 1+; LARGE PLATELETS 2+
[2016-07-07] MEDS: MEROPENEM 1 GM in SODIUM CHLORIDE 0.9% 100 ML IV SCH ×2 (09:02→21:13)
[2016-07-07] MEDS ORDERED: NALOXONE 1 MG/ML, 2ML ONE (10:29)
[2016-07-07] MEDS ORDERED: FENTANYL PF 100 MCG/2ML ONE (10:29)
[2016-07-07] MEDS ORDERED: FLUMAZENIL 0.1 MG/1 ML, 5ML ONE (10:29)
[2016-07-07] MEDS ORDERED: MIDAZOLAM 1 MG/ML, 5ML ONE (10:29)
[2016-07-07 12:00] VITALS: BP 134/90
[2016-07-07] MEDS ORDERED: CATHFLO-ALTEPLASE 2 MG/2 ML CATHFLUSH ONE ×2 (12:00→18:30)
[2016-07-07 12:18] VITALS: BP 146/92
[2016-07-07] MEDS: TAMSULOSIN 0.4 MG CAP.ER.24H PO SCH (12:20)
[2016-07-07] MEDS: LOSARTAN 25MG TABLET PO SCH (12:20)
[2016-07-07] MEDS ORDERED: AMINO ACID 10% IV SCH (17:00)
[2016-07-07] MEDS ORDERED: DEXTROSE 70% IV SCH (17:00)
[2016-07-07] MEDS ORDERED: [UNRECOGNIZED DRUG - OTHER] IV SCH (17:00)
[2016-07-07] MEDS ORDERED: FAT EMULSIONS IV SCH (17:00)
[2016-07-07 20:00] VITALS: BP 134/83
[2016-07-07] MEDS: SODIUM CHLORIDE 0.9% 1,000 ML IV SCH ×2 (21:00→21:27)
[2016-07-07] MEDS: ATORVASTATIN 40 MG TABLET PO SCH (21:13)
[2016-07-07] MEDS: INSULIN DETEMIR 100 UNITS/ML, PEN SQ-INSULIN SCH (21:24)
[2016-07-08 01:45] VITALS: BP 143/84
[2016-07-08 05:16] LABS: BLOOD UREA NITROGEN 20 mg/dL (7-18)
[2016-07-08 06:12] VITALS: BP 163/96
[2016-07-08] MEDS: CARVEDILOL 6.25 MG TABLET PO SCH ×2 (06:14→18:09)
[2016-07-08] MEDS: INSULIN ASPART 100 UNITS/ML, PEN SQ-INSULIN SCH ×3 (06:14→18:09)
[2016-07-08 07:10] VITALS: BP 144/91
[2016-07-08] MEDS: TAMSULOSIN 0.4 MG CAP.ER.24H PO SCH (09:07)
[2016-07-08] MEDS: MEROPENEM 1 GM in SODIUM CHLORIDE 0.9% 100 ML IV SCH ×2 (09:07→21:00)
[2016-07-08] MEDS: LOSARTAN 25MG TABLET PO SCH (09:07)
[2016-07-08] MEDS ORDERED: LACTATED RINGERS 500 ML IV SCH (10:30)
[2016-07-08] MEDS: ENOXAPARIN 80 MG/0.8 ML SQ SCH (12:32)
[2016-07-08 13:49] VITALS: BP 129/75
[2016-07-08] MEDS ORDERED: FAT EMULSIONS IV SCH (17:00)
[2016-07-08] MEDS ORDERED: AMINO ACID 10% IV SCH (17:00)
[2016-07-08] MEDS ORDERED: DEXTROSE 70% IV SCH (17:00)
[2016-07-08] MEDS ORDERED: [UNRECOGNIZED DRUG - OTHER] IV SCH (17:00)
[2016-07-08] MEDS: FILTER, DISP 1.2 MICRON FOR TPN/PVN IV PRN (18:00)
[2016-07-08 19:58] VITALS: BP 145/77
[2016-07-08] MEDS: ATORVASTATIN 40 MG TABLET PO SCH (21:00)
[2016-07-08] MEDS: INSULIN DETEMIR 100 UNITS/ML, PEN SQ-INSULIN SCH (21:02)
[2016-07-08] MEDS: OXYcodone/APAP 5/325MG TABLET PO PRN (21:14)
[2016-07-08] MEDS: SODIUM CHLORIDE 0.9% 1,000 ML IV SCH (23:55)
[2016-07-09 00:12] VITALS: BP 119/70
[2016-07-09] MEDS: ENOXAPARIN 80 MG/0.8 ML SQ SCH ×3 (00:14→23:00)
[2016-07-09] MEDS: INSULIN ASPART 100 UNITS/ML, PEN SQ-INSULIN SCH ×4 (00:20→18:19)
[2016-07-09 05:27] LABS: BLOOD UREA NITROGEN 19 mg/dL (7-18)
[2016-07-09] MEDS: CARVEDILOL 6.25 MG TABLET PO SCH ×2 (05:38→18:19)
[2016-07-09 07:04] VITALS: BP 153/84
[2016-07-09] MEDS: MEROPENEM 1 GM in SODIUM CHLORIDE 0.9% 100 ML IV SCH ×2 (08:43→22:33)
[2016-07-09] MEDS: TAMSULOSIN 0.4 MG CAP.ER.24H PO SCH (08:44)
[2016-07-09] MEDS: LOSARTAN 25MG TABLET PO SCH (08:44)
[2016-07-09] MEDS ORDERED: FILTER, DISP 1.2 MICRON FOR TPN/PVN IV PRN (09:00)
[2016-07-09] MEDS ORDERED: LACTATED RINGERS 1,000 ML IVBOLUS ONE (09:30)
[2016-07-09] MEDS: LOPERAMIDE 2 MG CAPSULE PO SCH ×2 (10:49→22:33)
[2016-07-09 13:12] VITALS: BP 154/93
[2016-07-09] MEDS ORDERED: AMINO ACID 10% IV SCH (17:00)
[2016-07-09] MEDS ORDERED: FAT EMULSIONS IV SCH (17:00)
[2016-07-09] MEDS ORDERED: DEXTROSE 70% IV SCH (17:00)
[2016-07-09] MEDS ORDERED: [UNRECOGNIZED DRUG - OTHER] IV SCH (17:00)
[2016-07-09 19:37] VITALS: BP 158/85
[2016-07-09] MEDS: SODIUM CHLORIDE 0.9% 1,000 ML IV SCH (22:30)
[2016-07-09] MEDS: ATORVASTATIN 40 MG TABLET PO SCH (22:33)
[2016-07-09] MEDS: OXYcodone/APAP 5/325MG TABLET PO PRN (22:34)
[2016-07-09] MEDS: INSULIN DETEMIR 100 UNITS/ML, PEN SQ-INSULIN SCH (22:35)
[2016-07-10] MEDS: INSULIN ASPART 100 UNITS/ML, PEN SQ-INSULIN SCH ×6 (00:51→23:49)
[2016-07-10 03:03] VITALS: BP 125/76
[2016-07-10] MEDS: CARVEDILOL 6.25 MG TABLET PO SCH ×2 (05:49→17:51)
[2016-07-10 06:01] LABS: BLOOD UREA NITROGEN 19 mg/dL (7-18)
[2016-07-10 06:04] LABS: ASPARTATE AMINO TRANSFERASE 50 U/L (15-37)
[2016-07-10 06:53] VITALS: BP 132/83
[2016-07-10] MEDS: MEROPENEM 1 GM in SODIUM CHLORIDE 0.9% 100 ML IV SCH ×2 (08:49→21:38)
[2016-07-10] MEDS: LOSARTAN 25MG TABLET PO SCH (08:49)
[2016-07-10] MEDS: TAMSULOSIN 0.4 MG CAP.ER.24H PO SCH (08:50)
[2016-07-10] MEDS: LOPERAMIDE 2 MG CAPSULE PO SCH ×2 (08:50→21:40)
[2016-07-10] MEDS ORDERED: LOPE2CAP PO (10:21)
[2016-07-10] MEDS ORDERED: ENOX80SY4 SQ (10:21)
[2016-07-10] MEDS ORDERED: MERO1VIA15 IV (10:22)
[2016-07-10] MEDS: ENOXAPARIN 80 MG/0.8 ML SQ SCH ×2 (11:48→23:31)
[2016-07-10 13:23] VITALS: BP 142/83
[2016-07-10] MEDS ORDERED: [UNRECOGNIZED DRUG - OTHER] IV SCH (17:00)
[2016-07-10] MEDS ORDERED: DEXTROSE 70% IV SCH (17:00)
[2016-07-10] MEDS ORDERED: AMINO ACID 10% IV SCH (17:00)
[2016-07-10] MEDS ORDERED: FILTER, DISP 1.2 MICRON FOR TPN/PVN IV PRN (17:00)
[2016-07-10] MEDS ORDERED: FAT EMULSIONS IV SCH (17:00)
[2016-07-10 18:21] VITALS: BP 152/94
[2016-07-10] MEDS: OXYcodone/APAP 5/325MG TABLET PO PRN (21:40)
[2016-07-10] MEDS: ATORVASTATIN 40 MG TABLET PO SCH (21:40)
[2016-07-10] MEDS: INSULIN DETEMIR 100 UNITS/ML, PEN SQ-INSULIN SCH (21:47)
[2016-07-10] MEDS: SODIUM CHLORIDE 0.9% 1,000 ML IV SCH (23:31)
[2016-07-11 01:32] VITALS: BP 125/71
[2016-07-11 04:56] LABS: BLOOD UREA NITROGEN 22 mg/dL (7-18)
[2016-07-11] MEDS: INSULIN ASPART 100 UNITS/ML, PEN SQ-INSULIN SCH ×4 (05:44→22:31)
[2016-07-11] MEDS: CARVEDILOL 6.25 MG TABLET PO SCH ×2 (05:44→18:49)
[2016-07-11 06:48] VITALS: BP 148/83
[2016-07-11] MEDS: MEROPENEM 1 GM in SODIUM CHLORIDE 0.9% 100 ML IV SCH ×2 (09:04→22:08)
[2016-07-11] MEDS: LOPERAMIDE 2 MG CAPSULE PO SCH ×2 (09:04→22:09)
[2016-07-11] MEDS: TAMSULOSIN 0.4 MG CAP.ER.24H PO SCH (09:05)
[2016-07-11] MEDS: LOSARTAN 25MG TABLET PO SCH (09:05)
[2016-07-11] MEDS ORDERED: AMINO ACID 10% IV SCH ×2 (09:17→17:00)
[2016-07-11] MEDS ORDERED: DEXTROSE 70% IV SCH ×2 (09:17→17:00)
[2016-07-11] MEDS: OXYcodone/APAP 5/325MG TABLET PO PRN ×2 (09:17→22:16)
[2016-07-11] MEDS ORDERED: [UNRECOGNIZED DRUG - OTHER] IV SCH ×2 (09:17→17:00)
[2016-07-11] MEDS ORDERED: FAT EMULSIONS IV SCH ×2 (09:17→17:00)
[2016-07-11] MEDS: ENOXAPARIN 80 MG/0.8 ML SQ SCH ×2 (12:10→22:09)
[2016-07-11 13:20] VITALS: BP 138/82
[2016-07-11 19:50] VITALS: BP 145/81
[2016-07-11] MEDS: ATORVASTATIN 40 MG TABLET PO SCH (22:09)
[2016-07-11] MEDS: INSULIN DETEMIR 100 UNITS/ML, PEN SQ-INSULIN SCH ×2 (22:14→22:32)
[2016-07-12 02:00] VITALS: BP 109/76
[2016-07-12 04:44] LABS: BLOOD UREA NITROGEN 21 mg/dL (7-18)
[2016-07-12 05:56] VITALS: BP 125/79
[2016-07-12] MEDS: CARVEDILOL 6.25 MG TABLET PO SCH ×2 (05:58→16:54)
[2016-07-12] MEDS: INSULIN ASPART 100 UNITS/ML, PEN SQ-INSULIN SCH ×4 (06:03→23:59)
[2016-07-12] MEDS: SODIUM CHLORIDE 0.9% 1,000 ML IV SCH ×2 (06:03→23:59)
[2016-07-12 06:48] VITALS: BP 133/86
[2016-07-12] MEDS: LOPERAMIDE 2 MG CAPSULE PO SCH ×2 (09:15→22:08)
[2016-07-12] MEDS: MEROPENEM 1 GM in SODIUM CHLORIDE 0.9% 100 ML IV SCH ×2 (09:15→22:09)
[2016-07-12] MEDS: TAMSULOSIN 0.4 MG CAP.ER.24H PO SCH (09:16)
[2016-07-12] MEDS: LOSARTAN 25MG TABLET PO SCH (09:16)
[2016-07-12] MEDS: ENOXAPARIN 80 MG/0.8 ML SQ SCH ×2 (12:29→22:36)
[2016-07-12 13:43] VITALS: BP 138/86
[2016-07-12] MEDS ORDERED: AMINO ACID 10% IV SCH (17:00)
[2016-07-12] MEDS ORDERED: FAT EMULSIONS IV SCH (17:00)
[2016-07-12] MEDS ORDERED: DEXTROSE 70% IV SCH (17:00)
[2016-07-12] MEDS ORDERED: [UNRECOGNIZED DRUG - OTHER] IV SCH (17:00)
[2016-07-12 19:02] VITALS: BP 144/87
[2016-07-12] MEDS: ATORVASTATIN 40 MG TABLET PO SCH (22:08)
[2016-07-12] MEDS: OXYcodone/APAP 5/325MG TABLET PO PRN (22:08)
[2016-07-12] MEDS: INSULIN DETEMIR 100 UNITS/ML, PEN SQ-INSULIN SCH (22:35)
[2016-07-13 01:35] VITALS: BP 120/74
[2016-07-13 05:31] LABS: ASPARTATE AMINO TRANSFERASE 52 U/L (15-37); BLOOD UREA NITROGEN 22 mg/dL (7-18)
[2016-07-13] MEDS: INSULIN ASPART 100 UNITS/ML, PEN SQ-INSULIN SCH ×3 (06:00→18:21)
[2016-07-13 06:35] VITALS: BP 135/82
[2016-07-13] MEDS: CARVEDILOL 6.25 MG TABLET PO SCH ×2 (06:38→18:21)
[2016-07-13] MEDS: LOPERAMIDE 2 MG CAPSULE PO SCH (08:49)
[2016-07-13] MEDS: MEROPENEM 1 GM in SODIUM CHLORIDE 0.9% 100 ML IV SCH (08:49)
[2016-07-13] MEDS: LOSARTAN 25MG TABLET PO SCH (08:49)
[2016-07-13] MEDS: TAMSULOSIN 0.4 MG CAP.ER.24H PO SCH (08:49)
[2016-07-13] MEDS: ENOXAPARIN 80 MG/0.8 ML SQ SCH (11:22)
[2016-07-13 14:41] VITALS: BP 137/89
[2016-07-13] MEDS ORDERED: [UNRECOGNIZED DRUG - OTHER] IV SCH (17:00)
[2016-07-13] MEDS ORDERED: AMINO ACID 10% IV SCH (17:00)
[2016-07-13] MEDS ORDERED: FILTER, DISP 1.2 MICRON FOR TPN/PVN IV PRN (17:00)
[2016-07-13] MEDS ORDERED: FAT EMULSIONS IV SCH (17:00)
[2016-07-13] MEDS ORDERED: DEXTROSE 70% IV SCH (17:00)
[2016-07-13 18:00] VITALS: BP 132/88
== END 2016-07-13 18:30 | DRG 329 ==
LOC: ORIP 06:25 → CCU 13:40 → 4NOR 06-30 12:47
PROVIDERS: ADMIT Colon & Rectal Surgery; ATTEND Colon & Rectal Surgery
PROC: 0DTL0ZZ Resection of Transverse Colon, Open Approach (ICD-10-PCS; 2016-06-25)
PROC: 0DTM0ZZ Resection of Descending Colon, Open Approach (ICD-10-PCS; 2016-06-25)
PROC: 0DTN0ZZ Resection of Sigmoid Colon, Open Approach (ICD-10-PCS; 2016-06-25)
PROC: 30233N1 Transfusion of Nonautologous Red Blood Cells into Peripheral Vein, Percutaneous Approach (ICD-10-PCS; 2016-06-25)
PROC: 0DB80ZZ Excision of Small Intestine, Open Approach (ICD-10-PCS; 2016-06-26)
PROC: 0D1K0ZP Bypass Ascending Colon to Rectum, Open Approach (ICD-10-PCS; 2016-06-26)
PROC: 02HV33Z Insertion of Infusion Device into Superior Vena Cava, Percutaneous Approach (ICD-10-PCS; 2016-06-28)
PROC: B5181ZA Fluoroscopy of Superior Vena Cava using Low Osmolar Contrast, Guidance (ICD-10-PCS; 2016-06-28)
PROC: B548ZZA Ultrasonography of Superior Vena Cava, Guidance (ICD-10-PCS; 2016-06-28)
PROC: 0W9G30Z Drainage of Peritoneal Cavity with Drainage Device, Percutaneous Approach (ICD-10-PCS; 2016-07-03)
PROC: 0W9F3ZZ Drainage of Abdominal Wall, Percutaneous Approach (ICD-10-PCS; principal; 2016-07-07)
DX: K50.90 Crohn's disease, unspecified, without complications (principal); E43 Unspecified severe protein-calorie malnutrition; J96.00 Acute respiratory failure, unspecified whether with hypoxia or hypercapnia; S35.299A Unspecified injury of branches of celiac and mesenteric artery, initial encounter; D68.59 Other primary thrombophilia; I50.32 Chronic diastolic (congestive) heart failure; K56.7 Ileus, unspecified; D50.0 Iron deficiency anemia secondary to blood loss (chronic); D72.825 Bandemia; E11.65 Type 2 diabetes mellitus with hyperglycemia; E66.9 Obesity, unspecified; E78.5 Hyperlipidemia, unspecified; I11.0 Hypertensive heart disease with heart failure; E83.39 Other disorders of phosphorus metabolism; I25.10 Atherosclerotic heart disease of native coronary artery without angina pectoris; I48.91 Unspecified atrial fibrillation; J32.0 Chronic maxillary sinusitis; N40.0 Benign prostatic hyperplasia without lower urinary tract symptoms; Z51.5 Encounter for palliative care; Z53.31 Laparoscopic surgical procedure converted to open procedure; Z79.01 Long term (current) use of anticoagulants; Z79.4 Long term (current) use of insulin; Z80.6 Family history of leukemia; Z80.7 Family history of other malignant neoplasms of lymphoid, hematopoietic and related tissues; Z82.3 Family history of stroke; Z82.49 Family history of ischemic heart disease and other diseases of the circulatory system; Z83.3 Family history of diabetes mellitus; Z86.711 Personal history of pulmonary embolism; Z86.718 Personal history of other venous thrombosis and embolism; Z86.73 Personal history of transient ischemic attack (TIA), and cerebral infarction without residual deficits; Z87.891 Personal history of nicotine dependence; Z68.27 Body mass index [BMI] 27.0-27.9, adult
CPT/HCPCS: 36415; 36569; 36600; 49405; 49406; 70450; 71010; 74177; 75989; 76937; 77001; 80048; 80053; 81001; 81003; 82330; 82803; 82947; 82962; 83735; 84100; 84132; 84134; 84295; 84478; 85014; 85025; 85610; 86850; 86900; 86923; 87040; 87070; 87075; 87077; 87081; 87186; 87205; 87324; 88302; 88307; 90732; 94002; 94003; 94640; 99156; 99157; J0610; J1170; J1650; J1815; J2185; J2250; J2543; J2704; J2997; J3010; J3475; J3480; J7120; J7620; P9045; P9047; Q9967; C1729; C1751; C1765; J0330; J1940; J2310; J2370; J3420; J7030; P9016; S0028; S0074

== ENCOUNTER 2018-12-16 12:12 | Outpatient (CLI) | payer MEDICARE ==
[~2018-12-16] VITALS: Ht 172.7 cm; Wt 82.5 kg
[2018-12-16 11:25] VITALS: BP 148/75
[~2018-12-16 12:12] MED LIST changes: +AMLO-150 PO; +AMLO5TAB4 PO; +AZIT500T5 PO; -AZIT500T77 PO; +CEFP200T PO; +CYAN100072 PO; -CYAN10008 PO; +DIPH1TAB PO; +ENOX80SY4 SQ; +FURO40TA6 PO; +LOPE2CAP PO; +LOSA25TA25 PO; +LOSA50TA14 PO; +MERO1VIA15 IV; +MORP100S3 PO; +MORP20SO PO; +SODIUM CHLORIDE 0.9%, 250ML ONE; -SPIR25TA3 PO; +SPIR25TA5 PO; -VERA120T74 PO; +VERA120T8 PO; +WARF1TAB74 PO; +WARF2TAB99 PO; +WARF4TAB65 PO; -WARF4TAB7 PO; +WARF7.5T46 PO-COUM; -WARF7.5T6 PO-COUM
[2018-12-16] MEDS ORDERED: SODIUM CHLORIDE 0.9% IV ONE (12:30)
[2018-12-16] MEDS ORDERED: INFLIXIMAB IV ONE (12:30)
[2018-12-16] MEDS ORDERED: FILTER 0.22 MICRON IV ONE (12:30)
[2018-12-16] MEDS ORDERED: FILTER 1.2 MICRON IV ONE (12:30)
== END 2018-12-16 23:59 | disposition home or self-care (01) ==
LOC: INFUSION 12:12
PROVIDERS: ATTEND Internal Medicine Gastroenterology
DX: K50.10 Crohn's disease of large intestine without complications (principal)
CPT/HCPCS: 96365; 96366; J1745; J7050

== ENCOUNTER → 2019-02-13 | Outpatient (CLI) | payer MEDICARE ==
[~2019-02-13] VITALS: Ht 172.7 cm; Wt 82.1 kg
[~2019-02-13] MED LIST changes: +AZIT500T10 PO; -AZIT500T5 PO; +FILTER 1.2 MICRON IV ONE; +INFLIXIMAB IV ONE; +LACT1CAP43 PO; +SODIUM CHLORIDE 0.9% IV ONE; -SODIUM CHLORIDE 0.9%, 250ML ONE
[2019-02-13 08:30] VITALS: BP 150/86
== END | disposition home or self-care (01) ==
LOC: INFUSION 10:15
PROVIDERS: ATTEND Internal Medicine Gastroenterology
DX: K50.10 Crohn's disease of large intestine without complications (principal)
CPT/HCPCS: 96365; 96366; J1745; J7050

== ENCOUNTER 2019-04-07 10:36 | Outpatient (CLI) | payer MEDICARE ==
[~2019-04-07] VITALS: Ht 172.7 cm; Wt 84.0 kg
[~2019-04-07 10:36] MED LIST changes: -DIGO250T PO; +DIGO250T3 PO; -FILTER 1.2 MICRON IV ONE; -INFLIXIMAB IV ONE; -SODIUM CHLORIDE 0.9% IV ONE
[2019-04-07 11:34] VITALS: BP 134/76
[2019-04-07] MEDS ORDERED: INFLIXIMAB IV ONE (12:00)
[2019-04-07] MEDS ORDERED: SODIUM CHLORIDE 0.9% IV ONE (12:00)
== END 2019-04-07 23:59 | disposition home or self-care (01) ==
LOC: INFUSION 10:36
PROVIDERS: ATTEND Internal Medicine Gastroenterology
DX: K50.10 Crohn's disease of large intestine without complications (principal)
CPT/HCPCS: 96365; 96366; J1745; J7050

== ENCOUNTER 2019-09-29 08:04 | Outpatient (CLI) | payer MEDICARE ==
[~2019-09-29 08:04] MED LIST changes: +FLUO10CA13 PO; -MERO1VIA15 IV; +MERO1VIA24 IV; -WARF5TAB PO; +WARF5TAB2 PO
== END 2019-09-29 23:59 | disposition home or self-care (01) ==
LOC: CFH 08:04
DX: Z12.2 Encounter for screening for malignant neoplasm of respiratory organs (principal); M51.34 Other intervertebral disc degeneration, thoracic region; J84.10 Pulmonary fibrosis, unspecified; Z87.891 Personal history of nicotine dependence
CPT/HCPCS: 76706; G0297